=== PATIENT | male | born 1970 | race Caucasian/White ===

== ENCOUNTER 2021-12-29 22:19 | Emergency (ER) | payer BC, OTHER, SELFPAY ==
[2021-12-29 22:22] VITALS: BP 117/75; PULSE 94; RESP 18; TEMP 36.9; O2SAT 97; BMI 35.6
--- NOTE | 2021-12-29 23:26 | ED.WOUNDLAC ---
HPI - Wound/Laceration General Chief Complaint: Wound/Laceration Stated Complaint: head inj Time Seen by Provider: 12/29/21 23:26 Source: patient Mode of arrival: ambulatory Limitations: no limitations History of Present Illness HPI narrative: Patient hit his top of the head to the door he jumped in realize doorjamb was there and had superficial abrasion to the top of the head no loss of consciousness no other injuries Review of Systems Review of Systems: Yes all other systems are reviewed and are negative [facility] Social History Social History Advance Directives: No Advance Directives Information Provided: No Physical Exam Vital Signs: Vital Signs: Last Vital Signs Temp 98.4 F 12/29/21 22:22 Pulse 94 12/29/21 22:22 Resp 18 12/29/21 22:22 BP 117/75 12/29/21 22:22 Pulse Ox 97 12/29/21 22:22 BMI result Body Mass Index 35.6 Const: General: healthy appearing and comfortable Orientation/consciousness: patient oriented x3 HEENT: Head: Yes No palpable skull fracture present and Yes normocephalic Head images: 1. Superficial abrasion with skin loss no active bleeding Ears: hearing grossly normal bilaterally and TM's normal bilaterally Neck: Neck: Yes full ROM and No tender Neuro: General: patient oriented x3 and no focal motor deficits MDM - Wound/Laceration MDM Narrative Medical decision making narrative: Patients with superficial skin avulsion with abrasion on the scalp of the head no significant injuries was and S distant Discharge Plan Discharge Clinical Impression: Abrasion Patient Disposition: Home, Self-Care Instructions: Abrasion (ED) Additional Instructions: Local care advised apply bacitracin ointment Interventions: ED Discharge Assessment Last Done: 12/30/21 00:12 Discharge Date/Time: 12/30/21 00:13
== END 2021-12-30 00:13 | disposition home or self-care (01) ==
PROVIDERS: Emergency Provider Internal Medicine
DX: S00.91XA Abrasion of unspecified part of head, initial encounter (principal); W01.0XXA Fall on same level from slipping, tripping and stumbling without subsequent striking against object, initial encounter; Y93.9 Activity, unspecified; Y92.9 Unspecified place or not applicable; Y99.9 Unspecified external cause status
CPT/HCPCS: 99282; 99284